=== PATIENT | male | born 1955 | race Asian ===

== ENCOUNTER 2016-06-07 11:48 | Inpatient (IN) | payer MEDICARE, MEDICAID ==
[~2016-06-07] VITALS: Ht 167.6 cm; Wt 93.5 kg
[~2016-06-07 11:48] MED LIST: ENOX40DI9 SQ; OXYC-158 PO; [UNRECOGNIZED DRUG - REMARK]
[2016-06-07] MEDS ORDERED: GABA-531 PO (12:01)
[2016-06-07] MEDS ORDERED: LOSA50TA37 PO (12:01)
[2016-06-07] MEDS ORDERED: TAMS0.4C32 PO (12:01)
[2016-06-07] MEDS ORDERED: METF500T4 PO (12:01)
[2016-06-07] MEDS ORDERED: TIOT185 IH (12:01)
[2016-06-07] MEDS ORDERED: OLAN10TA3 PO (12:01)
[2016-06-07] MEDS ORDERED: TRAZ-144 PO (12:01)
[2016-06-07] MEDS ORDERED: VITAD1000 PO (12:01)
[2016-06-07] MEDS ORDERED: ADV100 IH (12:01)
[2016-06-07] MEDS ORDERED: PARO10TA89 PO (12:01)
[2016-06-07] MEDS ORDERED: NAPR-58 PO (12:01)
[2016-06-07] MEDS ORDERED: INSULIN REGULAR, HUMAN 100 UNITS/ML IVP ONE (13:00)
[2016-06-07] MEDS ORDERED: SODIUM CHLORIDE 0.9% 1,000 ML IV ONE ×3 (13:00→14:45)
[2016-06-07 13:08] LABS: BASOPHILS % (AUTO) 0.1 % (0.0-2.0); EOSINOPHILS % (AUTO) 0.1 % (1.0-6.0); HEMATOCRIT 42.6 % (41-53); HEMOGLOBIN 14.2 g/dL (13.5-17.5); LYMPHOCYTES # (AUTO) 0.9 K/uL (1.0-4.8); LYMPHOCYTES % (AUTO) 6.8 % (22.0-44.0); MEAN CORPUSCULAR HEMOGLOBIN 29.7 pg (26.0-34.0); MEAN CORPUSCULAR HGB CONC 33.4 G/dL (31.0-37.0); MEAN CORPUSCULAR VOLUME 89 fL (80-100); MONOCYTES # (AUTO) 0.8 K/uL (0.1-1.0); MONOCYTES % (AUTO) 6.5 % (2.0-9.0); NEUTROPHILS # (AUTO) 11.1 K/uL (1.8-7.7); PLATELET COUNT (AUTO) 158 K/uL (150-450); RED BLOOD CELL COUNT(AUTO) 4.79 MIL/uL (4.50-5.90); RED CELL DISTRIBUTION WIDTH 13.2 % (11.5-14.5); WHITE BLOOD COUNT (AUTO) 12.9 K/uL (4.5-11.0)
[2016-06-07 13:09] LABS: NEUTROPHILS % (AUTO) 86.5 % (40.0-70.0); RBC MORPHOLOGY COMMENT NORMAL RBC MORPH
[2016-06-07 13:20] LABS: ANION GAP 16 mmol/L (8-16); CALCIUM, TOTAL 9.5 mg/dL (8.8-10.5); CARBON DIOXIDE 24 mmol/L (22-29); CHLORIDE 90 mmol/L (98-107); CREATININE 1.76 mg/dL (0.60-1.30); GLOMERULAR FILTR. RATE CALC 40 mL/min (>60); POTASSIUM 5.1 mmol/L (3.5-5.1); SODIUM SERUM 130 mmol/L (136-145); UREA NITROGEN, BLOOD 26 mg/dL (7-18)
[2016-06-07 13:23] LABS: ALANINE AMINOTRANSFERASE 21 U/L (12-78); ASPARTATE AMINOTRANSFERASE 10 U/L (15-37); BILIRUBIN,TOTAL 0.8 mg/dL (0.1-1.0); TOTAL PROTEIN, SERUM 8.1 g/dL (6.4-8.2)
[2016-06-07 13:40] LABS: ABG A-A DIFF O2 33.5 mmHg (10-20.0); ABG BASE EXCESS -2.9 mmol/L (-2.0-3.0); ABG HCO3 22.2 mmol/L (22.0-26.0); ABG OXYHEMOGLOBIN 91.1 % (94.0-100.0); ABG PCO2 40 mmHg (35-45); ABG PH 7.368 (7.35-7.450); TEMPERATURE, FAHRENHEIT, BG 98.6 FAHREN (96.0-98.6)
[2016-06-07 13:41] LABS: ALLEN TEST, BLOOD GAS POSITIVE
[2016-06-07 14:26] LABS: GLUCOSE,POINT OF CARE > 600 MG/DL (70-110)
[2016-06-07] MEDS ORDERED: ONDANSETRON HCL 4 MG/2 ML VIAL IVP ONE (14:45)
[2016-06-07] MEDS ORDERED: 0.9% SODIUM CHLORIDE 5 ML NEB SOLUTION NEB ONE (15:10)
[2016-06-07] MEDS ORDERED: ALBUTEROL SULFATE 2.5 MG/0.5 ML NEB SOLUTION NEB ONE (15:15)
[2016-06-07 15:20] LABS: APPEARANCE,URINE CLEAR (CLEAR); GLUCOSE, URINE (UA) >=1000 mg/dL (NEGATIVE); KETONES,URINE TRACE mg/dL (NEGATIVE); LEUKOCYTE ESTERASE ,URINE NEGATIVE (NEGATIVE); OCCULT BLOOD,URINE NEGATIVE (NEGATIVE); PH,URINE 5.5 (5.0-8.0); PROTEIN,URINE NEGATIVE (NEGATIVE)
[2016-06-07 15:23] LABS: ADD UA MICROSCOPIC YES
[2016-06-07] MEDS ORDERED: DEXTROSE 5%-0.45% SODIUM CHL 1,000 ML IV PRN (15:23)
[2016-06-07] MEDS ORDERED: INSULIN REGULAR, HUMAN 100 UNITS in SODIUM CHLORIDE 0.9% 99 ML IV PRN ×2 (15:23)
[2016-06-07] MEDS ORDERED: SODIUM CHLORIDE 0.9% 1,000 ML IV SCH (15:23)
[2016-06-07] MEDS ORDERED: SODIUM CHLORIDE 0.45% 1,000 ML IV PRN (15:23)
[2016-06-07] MEDS ORDERED: POTASSIUM CHLORIDE 40 MEQ in SODIUM CHLORIDE 0.45% 1,000 ML IV PRN (15:23)
[2016-06-07 15:25] LABS: RBC,URINE None Seen /HPF (0-2); WBC,URINE 0-2 /HPF (0-5)
[2016-06-07] MEDS ORDERED: INSULIN REGULAR, HUMAN 100 UNITS/ML IVP PRN (15:30)
[2016-06-07] MEDS ORDERED: DEXTROSE 50%-WATER 25 GM/50 ML SYRINGE IVP PRN (15:30)
[2016-06-07 16:34] LABS: CALCIUM, TOTAL 8.7 mg/dL (8.8-10.5); CREATININE 1.24 mg/dL (0.60-1.30); POTASSIUM 4.6 mmol/L (3.5-5.1)
[2016-06-07] MEDS: POTASSIUM CHL 20 MEQ/0.45% NS 1,000 ML IV PRN ×2 (16:45→20:52)
[2016-06-07 17:52] LABS: GLUCOSE,POINT OF CARE 408 MG/DL (70-110)
[2016-06-07 18:56] LABS: GLUCOSE,POINT OF CARE 322 MG/DL (70-110)
[2016-06-07 19:52] LABS: GLUCOSE,POINT OF CARE 252 MG/DL (70-110)
[2016-06-07 19:59] LABS: EOSINOPHILS % (AUTO) 0.7 % (1.0-6.0); HEMATOCRIT 40.6 % (41-53); HEMOGLOBIN 13.5 g/dL (13.5-17.5); LYMPHOCYTES # (AUTO) 1.8 K/uL (1.0-4.8); LYMPHOCYTES % (AUTO) 13.7 % (22.0-44.0); MEAN CORPUSCULAR HEMOGLOBIN 29.5 pg (26.0-34.0); MEAN CORPUSCULAR HGB CONC 33.2 G/dL (31.0-37.0); MEAN CORPUSCULAR VOLUME 89 fL (80-100); MONOCYTES % (AUTO) 7.6 % (2.0-9.0); NEUTROPHILS # (AUTO) 10.5 K/uL (1.8-7.7); PLATELET COUNT (AUTO) 168 K/uL (150-450); RED BLOOD CELL COUNT(AUTO) 4.57 MIL/uL (4.50-5.90); RED CELL DISTRIBUTION WIDTH 13.3 % (11.5-14.5); WHITE BLOOD COUNT (AUTO) 13.5 K/uL (4.5-11.0)
[2016-06-07 20:08] LABS: ANION GAP 9 mmol/L (8-16); CARBON DIOXIDE 28 mmol/L (22-29); CHLORIDE 107 mmol/L (98-107); CREATININE 0.93 mg/dL (0.60-1.30); GLOMERULAR FILTR. RATE CALC > 60 mL/min (>60); POTASSIUM 4.7 mmol/L (3.5-5.1); SODIUM SERUM 144 mmol/L (136-145); UREA NITROGEN, BLOOD 18 mg/dL (7-18)
[2016-06-07 21:16] LABS: GLUCOSE,POINT OF CARE 195 MG/DL (70-110)
[2016-06-07 22:16] LABS: GLUCOSE,POINT OF CARE 152 MG/DL (70-110)
[2016-06-07 23:41] LABS: GLUCOSE,POINT OF CARE 122 MG/DL (70-110)
[2016-06-08] VITALS (7 sets, daily range): BP systolic 100–132; BP diastolic 59–87
[2016-06-08 00:03] LABS: ANION GAP 8 mmol/L (8-16); CALCIUM, TOTAL 8.9 mg/dL (8.8-10.5); CARBON DIOXIDE 30 mmol/L (22-29); CHLORIDE 108 mmol/L (98-107); CREATININE 0.79 mg/dL (0.60-1.30); GLOMERULAR FILTR. RATE CALC > 60 mL/min (>60); POTASSIUM 4.3 mmol/L (3.5-5.1); SODIUM SERUM 146 mmol/L (136-145); UREA NITROGEN, BLOOD 17 mg/dL (7-18)
[2016-06-08 01:07] LABS: GLUCOSE,POINT OF CARE 126 MG/DL (70-110)
[2016-06-08] MEDS ORDERED: DEXTROSE 50%-WATER 25 GM/50 ML SYRINGE IVP PRN (02:30)
[2016-06-08 03:06] LABS: GLUCOSE,POINT OF CARE 134 MG/DL (70-110)
[2016-06-08 05:02] LABS: ALANINE AMINOTRANSFERASE 17 U/L (12-78); ALBUMIN 3.3 g/dL (3.4-5.0); ANION GAP 10 mmol/L (8-16); ASPARTATE AMINOTRANSFERASE 10 U/L (15-37); BILIRUBIN,TOTAL 0.5 mg/dL (0.1-1.0); CALCIUM, TOTAL 8.5 mg/dL (8.8-10.5); CARBON DIOXIDE 26 mmol/L (22-29); CHLORIDE 109 mmol/L (98-107); CREATININE 0.72 mg/dL (0.60-1.30); GLOMERULAR FILTR. RATE CALC > 60 mL/min (>60); PHOSPHORUS 3.3 mg/dL (2.5-4.9); POTASSIUM 4.2 mmol/L (3.5-5.1); SODIUM SERUM 145 mmol/L (136-145); TOTAL PROTEIN, SERUM 7.2 g/dL (6.4-8.2); UREA NITROGEN, BLOOD 17 mg/dL (7-18)
[2016-06-08 06:27] LABS: GLUCOSE,POINT OF CARE 197 MG/DL (70-110)
[2016-06-08] MEDS ORDERED: AZITHROMYCIN 500 MG/NS 250 ML IV ONE (08:00)
[2016-06-08] MEDS ORDERED: ACETAMINOPHEN 325 MG TABLET PO PRN (08:00)
[2016-06-08] MEDS ORDERED: OxyCODONE HCL/ACETAMINOPHEN 5-325 MG TABLET PO PRN ×2 (08:00)
[2016-06-08] MEDS ORDERED: 0.9% SODIUM CHLORIDE 10 ML SYRINGE IVP PRN (08:00)
[2016-06-08] MEDS ORDERED: ONDANSETRON HCL 4 MG/2 ML VIAL IVP PRN (08:00)
[2016-06-08] MEDS ORDERED: MAGNESIUM HYDROXIDE SUSPENSION 30 ML UDCUP PO PRN (08:00)
[2016-06-08 08:23] LABS: CHOL/HDL RATIO 2.4 (4.2-7.3)
[2016-06-08] MEDS: DOCUSATE SODIUM 100 MG CAPSULE PO SCH ×2 (08:53→21:17)
[2016-06-08] MEDS: PANTOPRAZOLE SODIUM 40 MG/VIAL IVP SCH (08:53)
[2016-06-08] MEDS: PARoxetine HCL 10 MG TABLET PO SCH (08:54)
[2016-06-08] MEDS: GABAPENTIN 300 MG CAPSULE PO SCH ×3 (08:55→21:16)
[2016-06-08] MEDS: ENOXAPARIN SODIUM 40 MG/0.4 ML PF SYRINGE SQ SCH (08:55)
[2016-06-08] MEDS: OLANZapine 10 MG TABLET PO SCH (08:56)
[2016-06-08] MEDS: LOSARTAN POTASSIUM 50 MG TABLET PO SCH (08:56)
[2016-06-08] MEDS: CefTRIAXone 1 GM/DEXTROSE 50 ML IV SCH (08:57)
[2016-06-08] MEDS: TIOTROPIUM BROMIDE 18 MCG/INH HANDIHALER [5] IH SCH (08:58)
[2016-06-08] MEDS: INSULIN ASPART 100 UNITS/ML SQ PRN ×4 (09:31→21:19)
[2016-06-08 09:36] LABS: GLUCOSE COMMENT 1 Doctor Notified; GLUCOSE,POINT OF CARE 207 MG/DL (70-110)
[2016-06-08 09:36] LABS: GLUCOSE,POINT OF CARE 198 MG/DL (70-110)
[2016-06-08 09:38] LABS: HEMOGLOBIN A1C 9.6 % (4.5-6.2)
[2016-06-08 11:37] LABS: GLUCOSE,POINT OF CARE 240 MG/DL (70-110)
[2016-06-08 13:46] LABS: GLUCOSE,POINT OF CARE 203 MG/DL (70-110)
[2016-06-08] MEDS ORDERED: INFLUENZA VIRUS VACCINE QVS 2016-17 (3YR+)/PF 60 MCG/0.5 ML SYRINGE IM ONE (14:00)
[2016-06-08 16:57] LABS: GLUCOSE,POINT OF CARE 223 MG/DL (70-110)
[2016-06-08 16:57] LABS: GLUCOSE,POINT OF CARE 171 MG/DL (70-110)
[2016-06-08 18:57] LABS: GLUCOSE,POINT OF CARE 200 MG/DL (70-110)
[2016-06-08] MEDS ORDERED: TraZODone HCL 50 MG TABLET PO SCH (21:00)
[2016-06-08] MEDS ORDERED: TAMSULOSIN HCL 0.4 MG CAPSULE PO SCH (21:00)
[2016-06-09 04:54] VITALS: BP 122/67
[2016-06-09] MEDS: INSULIN ASPART 100 UNITS/ML SQ PRN ×3 (05:53→17:35)
[2016-06-09 06:36] LABS: BASOPHILS # (AUTO) 0.03 K/uL (0.00-0.20); BASOPHILS % (AUTO) 0.4 % (0.0-2.0); EOSINOPHILS # (AUTO) 0.38 K/uL (0.00-0.70); EOSINOPHILS % (AUTO) 4.17 % (1.0-6.0); HEMATOCRIT 39.1 % (41-53); LYMPHOCYTES # (AUTO) 1.8 K/uL (1.0-4.8); LYMPHOCYTES % (AUTO) 19.5 % (22.0-44.0); MEAN CORPUSCULAR HEMOGLOBIN 29.5 pg (26.0-34.0); MEAN CORPUSCULAR HGB CONC 33.2 G/dL (31.0-37.0); MEAN CORPUSCULAR VOLUME 89 fL (80-100); MONOCYTES # (AUTO) 0.8 K/uL (0.1-1.0); MONOCYTES % (AUTO) 8.8 % (2.0-9.0); NEUTROPHILS # (AUTO) 6.1 K/uL (1.8-7.7); NEUTROPHILS % (AUTO) 67.2 % (40.0-70.0); PLATELET COUNT (AUTO) 161 K/uL (150-450); RED BLOOD CELL COUNT(AUTO) 4.39 MIL/uL (4.50-5.90); RED CELL DISTRIBUTION WIDTH 13.5 % (11.5-14.5)
[2016-06-09 07:03] LABS: ANION GAP 10 mmol/L (8-16); CALCIUM, TOTAL 8.8 mg/dL (8.8-10.5); CARBON DIOXIDE 27 mmol/L (22-29); CHLORIDE 103 mmol/L (98-107); CREATININE 0.65 mg/dL (0.60-1.30); GLOMERULAR FILTR. RATE CALC > 60 mL/min (>60); POTASSIUM 4.2 mmol/L (3.5-5.1); SODIUM SERUM 140 mmol/L (136-145); UREA NITROGEN, BLOOD 14 mg/dL (7-18)
[2016-06-09 07:23] VITALS: BP 117/66
[2016-06-09] MEDS: TIOTROPIUM BROMIDE 18 MCG/INH HANDIHALER [5] IH SCH (08:32)
[2016-06-09] MEDS: OLANZapine 10 MG TABLET PO SCH (08:33)
[2016-06-09] MEDS: PANTOPRAZOLE SODIUM 40 MG/VIAL IVP SCH (08:33)
[2016-06-09] MEDS: DOCUSATE SODIUM 100 MG CAPSULE PO SCH (08:33)
[2016-06-09] MEDS: PARoxetine HCL 10 MG TABLET PO SCH (08:33)
[2016-06-09] MEDS: GABAPENTIN 300 MG CAPSULE PO SCH ×2 (08:33→17:35)
[2016-06-09] MEDS: ENOXAPARIN SODIUM 40 MG/0.4 ML PF SYRINGE SQ SCH (08:34)
[2016-06-09] MEDS ORDERED: SODIUM CHLORIDE 0.9% 250 ML IV ONE (10:26)
[2016-06-09] MEDS: CefTRIAXone 1 GM/DEXTROSE 50 ML IV SCH (10:34)
[2016-06-09] MEDS: LOSARTAN POTASSIUM 50 MG TABLET PO SCH (10:34)
[2016-06-09 11:45] VITALS: BP 120/60
[2016-06-09 15:36] VITALS: BP 102/69
[2016-06-09 17:33] LABS: GLUCOSE COMMENT 1 Received Meds; GLUCOSE,POINT OF CARE 209 MG/DL (70-110)
[2016-06-09 17:36] LABS: GLUCOSE,POINT OF CARE 246 MG/DL (70-110)
[2016-06-09] MEDS ORDERED: PANT40TA25 PO (18:10)
[2016-06-09] MEDS ORDERED: INSU100V12 SQ (18:13)
[2016-06-09] MEDS ORDERED: INSU100C6 SQ (18:15)
[2016-06-10 07:42] LABS: GLUCOSE COMMENT 1 Received Meds; GLUCOSE,POINT OF CARE 308 MG/DL (70-110)
[2016-06-15 11:49] LABS: GLUCOSE COMMENT 1 Received Meds; GLUCOSE,POINT OF CARE 332 MG/DL (70-110)
== END 2016-06-09 19:10 | disposition home health service (06) | DRG 871 ==
LOC: EMS 11:50 → AHU 06-08 10:11 → 5N 06-08 20:49
PROVIDERS: ADMIT Internal Medicine; ATTEND Internal Medicine
PROC: 3E0234Z Introduction of Serum, Toxoid and Vaccine into Muscle, Percutaneous Approach (ICD-10-PCS; principal; 2016-06-09)
DX: A41.9 Sepsis, unspecified organism (principal); E13.10 Other specified diabetes mellitus with ketoacidosis without coma; J18.9 Pneumonia, unspecified organism; J44.0 Chronic obstructive pulmonary disease with (acute) lower respiratory infection; E11.65 Type 2 diabetes mellitus with hyperglycemia; E86.0 Dehydration; I10 Essential (primary) hypertension; E78.00 Pure hypercholesterolemia, unspecified; F17.210 Nicotine dependence, cigarettes, uncomplicated; F31.9 Bipolar disorder, unspecified; N40.0 Benign prostatic hyperplasia without lower urinary tract symptoms; Z88.6 Allergy status to analgesic agent; Z79.2 Long term (current) use of antibiotics; Z79.899 Other long term (current) drug therapy; Z98.890 Other specified postprocedural states; Z23 Encounter for immunization
CPT/HCPCS: 82805; 82962; 83036; 83735; 84100; 90471; 93005; 94640; 99285; C9113; J0456; J0696; J1650; J1815; J2405; J3480; J7030; J7050